=== PATIENT | female | born 1990 | race Hispanic/Latino ===

== ENCOUNTER 2018-09-17 15:25 | Emergency (ER) | payer BC ==
[2018-09-17 16:35] LABS: Bilirubin Negative (Negative); Blood, Urine Small (Negative); Clarity Clear (Clear); Glucose, Urine (Dipstick) Negative (Negative); Leukocyte Negative (Negative); Nitrite Negative (Negative); Protein, Urine (Dipstick) Negative (Neg-Trace); Urobilinogen 0.2 mg/dL (Less than 2)
[2018-09-17 16:37] LABS: WBC/HPF 0-3 HPF (0-3)
[2018-09-17 16:38] LABS: Bacteria/HPF 1+ HPF (None Seen)
== END 2018-09-17 17:15 | disposition home or self-care (01) ==
LOC: SCSER 15:25
DX: O20.0 Threatened abortion (principal)
CPT/HCPCS: 81003; 81015; 84702; 99284